=== PATIENT | female | born 1980 | race Caucasian/White ===

== ENCOUNTER 2020-03-21 16:15 | Emergency (ER) | payer MEDICAID, SELFPAY ==
[2020-03-21 19:47] LABS: Absolute Lymphocytes (CBC) 2.6 K/uL (0.7-4.9); Basophils % 0.7 % (0-1.3); Hematocrit 36.3 % (36.0-45.0); Lymphocytes % 38.3 % (15.3-44.8); MPV 7.8 fL (7.6-11.3); RBC Red Blood Cell Count 4.53 M/uL (3.86-4.86)
--- NOTE | 2020-03-21 19:47 | RAD REPORT ---
EXAM DESCRIPTION: [place] Single View03/21/2020 7:35 pm CLINICAL HISTORY: cough COMPARISON: none FINDINGS: The lungs appear clear of acute infiltrate. The heart is normal size IMPRESSION: No acute abnormalities displayed
[2020-03-21 19:48] LABS: Protime INR 1.08
[2020-03-21 20:06] LABS: ALT/SGPT 142 U/L (12-78); AST/SGOT 55 U/L (15-37); Albumin 3.4 g/dL (3.4-5.0); Alkaline Phosphatase 112 U/L (45-117); BUN Blood Urea Nitrogen 14 mg/dL (7-18); Bicarbonate 29 mmol/L (21-32); Bilirubin Direct < 0.1 mg/dL (0-0.2); Bilirubin Total 0.3 mg/dL (0.2-1.0); Glucose Level 117 mg/dL (74-106); Lipase 58 U/L (73-393); Magnesium 2.4 mg/dL (1.8-2.4); NT PRO-BNP 19 pg/mL (<125); Potassium 3.9 mmol/L (3.5-5.1); Protein, Total 7.4 g/dL (6.4-8.2); Sodium Level 140 mmol/L (136-145); Troponin (Emerg Dept Use Only) < 0.02 ng/mL (0.0-0.045)
--- NOTE | 2020-03-21 20:15 | ER ---
Nurse's Notes [facility] Name: Edith Fox Age: 39 yrs Sex: Female : 1980 Arrival Date: 03/21/2020 Time: 16:22 Bed 19 Private MD: Diagnosis: Edema, unspecified Presentation: 03/21 16:28 Chief complaint: Patient states: "I have CHF and I take Lasix which usually helps, but ss since yesterday, I've been swelling. It's my hands, feet and my face." Denies SOB. Coronavirus screen: Client denies travel out of the [place] in the last 14 days. Ebola Screen: Patient denies exposure to infectious person. Patient denies travel to an Ebola-affected area in the 21 days before illness onset. Initial Sepsis Screen: Does the patient meet any 2 criteria? No. Patient's initial sepsis screen is negative. Does the patient have a suspected source of infection? No. Patient's initial sepsis screen is negative. Risk Assessment: Do you want to hurt yourself or someone else? Patient reports no desire to harm self or others. Onset of symptoms was March 20, 2020. 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 - Social history:: Smoking status: Patient denies any tobacco usage or history of. Screenin:41 Abuse screen: Denies threats or abuse. Nutritional screening: No deficits noted. ll1 Tuberculosis screening: No symptoms or risk factors identified. Fall Risk IV access (20 points). Total Neal Fall Scale indicates No Risk (0-24 pts). Assessment: 18:42 General: Appears in no apparent distress. Behavior is calm, cooperative, appropriate ll1 for age. Pain: Denies pain. Cardiovascular: Reports since generalized swelling hands/legs/face. Taking medications as prescribed. 19:40 Reassessment: No changes from previously documented assessment. Patient and/or family ll1 updated on plan of care and expected duration. Pain level reassessed. Patient is alert, oriented x 3, equal unlabored respirations, skin warm/dry/pink. 20:40 Reassessment: No changes from previously documented assessment. Patient and/or family ll1 updated on plan of care and expected duration. Pain level reassessed. Patient is alert, oriented x 3, equal unlabored respirations, skin warm/dry/pink. Vital Signs: 16:28 BP 114 / 86; Pulse 82; Resp 15; Temp 97.2(TE); Pulse Ox 98% on R/A; Weight 81.19 kg; Height 5 ft. 0 in. (152.40 cm); Pain 0/10; 18:44 BP 123 / 83; Pulse 85; Resp 16; Pulse Ox 100% ; ll1 20:39 BP 108 / 82; Pulse 84; Resp 16; Pulse Ox 100% ; Pain 0/10; ll1 16:28 Body Mass Index 34.96 (81.19 kg, 152.40 cm) ED Course: 16:22 Patient arrived in ED. ag5 16:30 Triage completed. 16:31 Arm band placed on right wrist. 18:41 Dillon Bar, RN is Primary Nurse. ll1 18:41 Patient has correct armband on for positive identification. Bed in low position. Call ll1 light in reach. Side rails up X2. Pulse ox on. NIBP on. 18:42 Patient placed in an exam room, on a stretcher. ll1 18:53 Massimo Francis MD is Attending Physician. flo 19:00 Inserted saline lock: 18 gauge in right EJ, using aseptic technique. Blood collected. ll1 19:35 XRAY Chest (1 view) In Process Unspecified. EDMS 20:14 Adin Dangelo MD is Referral Physician. flo 20:39 IV discontinued, intact, bleeding controlled, No redness/swelling at site. Pressure ll1 dressing applied. 20:39 No provider procedures requiring assistance completed. ll1 Administered Medications: No medications were administered Outcome: 20:14 Discharge ordered by . flo 20:39 Discharged to home ambulatory. ll1 20:39 Condition: stable 20:39 Discharge instructions given to patient, Instructed on discharge instructions, follow up and referral plans. Demonstrated understanding of instructions, follow-up care. 20:41 Patient left the ED. ll1 Signatures: Dispatcher [employer] EDMassimo Keenan MD MD flo Smirch, Mira, RN RN Rosina Cervantes ag5 Dillon Bar, RN RN ll1 Corrections: (The following items were deleted from the chart) 20:39 20:38 Inserted saline lock: 18 gauge in right EJ, using aseptic technique. Blood ll1 collected. ll1
--- NOTE | 2020-03-21 20:16 | EDPHYS ---
Physician Documentation [facility] Name: Edith Fox Age: 39 yrs Sex: Female : 1980 Arrival Date: 03/21/2020 Time: 16:22 Bed 19 Private MD: ED Physician Massimo Francis HPI: 03/21 19:20 This 39 yrs old Female presents to ER via Ambulatory with complaints of Hand flo Swelling, Feet Swelling, Facial Swelling. 19:20 hands, feet, face swelling. Onset: The symptoms/episode began/occurred 2 day(s) ago. flo Severity of symptoms: in the emergency department the symptoms are unchanged. The patient has experienced similar episodes in the past, several times. 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 - Social history:: Smoking status: Patient denies any tobacco usage or history of. ROS: 19:21 Constitutional: Negative for fever, chills, and weight loss, Eyes: Negative for injury, flo pain, redness, and discharge, ENT: Negative for injury, pain, and discharge, Neck: Negative for injury, pain, and swelling, Cardiovascular: Negative for chest pain, palpitations, and edema, Respiratory: Negative for shortness of breath, cough, wheezing, and pleuritic chest pain, Abdomen/GI: Negative for abdominal pain, nausea, vomiting, diarrhea, and constipation, Back: Negative for injury and pain, : Negative for injury, bleeding, discharge, and swelling, Skin: Negative for injury, rash, and discoloration, Neuro: Negative for headache, weakness, numbness, tingling, and seizure, Psych: Negative for depression, anxiety, suicide ideation, homicidal ideation, and hallucinations, Allergy/Immunology: Negative for hives, rash, and allergies, Endocrine: Negative for neck swelling, polydipsia, polyuria, polyphagia, and marked weight changes, Hematologic/Lymphatic: Negative for swollen nodes, abnormal bleeding, and unusual bruising. 19:21 MS/extremity: Positive for tenderness, of the right arm, left arm, right leg and left leg. Exam: 19:21 Constitutional: This is a well developed, well nourished patient who is awake, alert, flo and in no acute distress. Head/Face: Normocephalic, atraumatic. Eyes: Pupils equal round and reactive to light, extra-ocular motions intact. Lids and lashes normal. Conjunctiva and sclera are non-icteric and not injected. Cornea within normal limits. Periorbital areas with no swelling, redness, or edema. ENT: Nares patent. No nasal discharge, no septal abnormalities noted. Tympanic membranes are normal and external auditory canals are clear. Oropharynx with no redness, swelling, or masses, exudates, or evidence of obstruction, uvula midline. Mucous membranes moist. Neck: Trachea midline, no thyromegaly or masses palpated, and no cervical lymphadenopathy. Supple, full range of motion without nuchal rigidity, or vertebral point tenderness. No Meningismus. Chest/axilla: Normal chest wall appearance and motion. Nontender with no deformity. No lesions are appreciated. Cardiovascular: Regular rate and rhythm with a normal S1 and S2. No gallops, murmurs, or rubs. Normal PMI, no JVD. No pulse deficits. Respiratory: Lungs have equal breath sounds bilaterally, clear to auscultation and percussion. No rales, rhonchi or wheezes noted. No increased work of breathing, no retractions or nasal flaring. Abdomen/GI: Soft, non-tender, with normal bowel sounds. No distension or tympany. No guarding or rebound. No evidence of tenderness throughout. Back: No spinal tenderness. No costovertebral tenderness. Full range of motion. Skin: Warm, dry with normal turgor. Normal color with no rashes, no lesions, and no evidence of cellulitis. MS/ Extremity: Pulses equal, no cyanosis. Neurovascular intact. Full, normal range of motion. Neuro: Awake and alert, GCS 15, oriented to person, place, time, and situation. Cranial nerves II-XII grossly intact. Motor strength 5/5 in all extremities. Sensory grossly intact. Cerebellar exam normal. Normal gait. Psych: Awake, alert, with orientation to person, place and time. Behavior, mood, and affect are within normal limits. 19:21 Musculoskeletal/extremity: DVT Exam: No signs of deep vein thrombosis. no pain, no swelling, no tenderness, negative Homans' sign noted on exam, no appreciated bluish discoloration, no erythema, no increased warmth. 19:58 ECG was reviewed by the Attending Physician. [facility] Vital Signs: 16:28 BP 114 / 86; Pulse 82; Resp 15; Temp 97.2(TE); Pulse Ox 98% on R/A; Weight 81.19 kg; ss Height 5 ft. 0 in. (152.40 cm); Pain 0/10; 18:44 BP 123 / 83; Pulse 85; Resp 16; Pulse Ox 100% ; ll1 20:39 BP 108 / 82; Pulse 84; Resp 16; Pulse Ox 100% ; Pain 0/10; ll1 16:28 Body Mass Index 34.96 (81.19 kg, 152.40 cm) Procedures: 19:58 Peripheral line: by aseptic technique a peripheral line was placed in the left external [facility] jugular vein. MDM: 18:53 Patient medically screened. [facility] 19:59 Differential diagnosis: contusion. Differential Diagnosis CHF, RENAL ISSUSES. Data [facility] reviewed: vital signs, nurses notes, lab test result(s), EKG, radiologic studies, CT scan, plain films. Data interpreted: equipment monitor phototypesetting: rate is 85 beats/min, rhythm is regular. Test interpretation: by ED physician or midlevel provider: ECG, plain radiologic studies. Counseling: I had a detailed discussion with the patient and/or guardian regarding: the historical points, exam findings, and any diagnostic results supporting the discharge/admit diagnosis, lab results, radiology results, the need for outpatient follow up, for definitive care, a flight test mechanic, a family practitioner. 03/21 19:00 Order name: Basic Metabolic Panel; Complete Time: 20:14 [facility] 03/21 19:00 Order name: CBC with Diff; Complete Time: 20:14 [facility] 03/21 19:00 Order name: LFT's; Complete Time: 20:14 [facility] 03/21 19:00 Order name: Magnesium; Complete Time: 20:14 [facility] 03/21 19:00 Order name: NT PRO-BNP; Complete Time: 20:14 [facility] 03/21 19:00 Order name: PT-INR; Complete Time: 20:14 [facility] 03/21 19:00 Order name: Troponin (emerg Dept Use Only); Complete Time: 20:14 [facility] 03/21 19:00 Order name: XRAY Chest (1 view); Complete Time: : [facility] 03/21 19:00 Order name: EKG; Complete Time: : [facility] 03/21 19:00 Order name: Cardiac monitoring; Complete Time: : [facility] 03/21 19:00 Order name: EKG - Nurse/Tech; Complete Time: : [facility] 03/21 19:00 Order name: IV Saline Lock; Complete Time: : [facility] 03/21 19:00 Order name: Lipase; Complete Time: 20: [facility] 03/21 19:00 Order name: Labs collected and sent; Complete Time: : [facility] 03/21 19:00 Order name: O2 Per Protocol; Complete Time: : [facility] 03/21 19:00 Order name: O2 Sat Monitoring; Complete Time: : [facility] 03/21 19:00 Order name: Urine Dipstick-Ancillary (obtain specimen); Complete Time: : [facility] 03/21 20:25 Order name: Urine Test (obtain specimen); Complete Time: 20:40 [facility] EC:58 Rate is 78 beats/min. Rhythm is regular. QRS [employer] is Normal. SD interval is normal. QRS flo interval is normal. QT interval is normal. No Q waves. T waves are Normal. No ST changes noted. Clinical impression: NSR w/ Non-specific ST/T Changes and No evidence of ischemia. Interpreted by me. Reviewed by me. Administered Medications: No medications were administered Disposition: 03/21/20 20:14 Discharged to Home. Impression: Edema, unspecified. - Condition is Stable. - Discharge Instructions: Edema, Edema, [id number], Peripheral Edema. - Medication Reconciliation Form, Thank You Letter, Antibiotic Education, Prescription Opioid Use form. - Follow up: Private Physician; When: 2 - 3 days; Reason: Recheck today's complaints, Continuance of care, Re-evaluation by your physician. Follow up: Adin Dangelo; When: 2 - 3 days; Reason: Recheck today's complaints, Re-evaluation by your physician. - Problem is new. - Symptoms have improved. Signatures: Dispatcher [employer] EDMS Massimo Francis MD MD cha Smirch, Shelby, RN RN ss Dillon Bar RN RN ll1 Corrections: (The following items were deleted from the chart) 20:41 20:14 03/21/2020 20:14 Discharged to Home. Impression: Edema, unspecified. Condition is ll1 Stable. Discharge Instructions: Edema, Edema, [id number], Peripheral Edema. Forms are Medication Reconciliation Form, Thank You Letter, Antibiotic Education, Prescription Opioid Use. Follow up: Private Physician; When: 2 - 3 days; Reason: Recheck today's complaints, Continuance of care, Re-evaluation by your physician. Follow up: Adin Dangelo; When: 2 - 3 days; Reason: Recheck today's complaints, Re-evaluation by your physician. Problem is new. Symptoms have improved. flo
[2020-03-21 20:48] VITALS: TEMP 97.2
[2020-03-21 20:49] VITALS: O2SAT 100
[2020-03-21 20:50] VITALS: BP 108/82
--- NOTE | 2020-03-22 16:11 | EKG ---
Test Date: 2020-03-21 Test Time: 19:11:16 Technical Sourcing Recruiter: [place] MEASUREMENT RESULTS: Intervals: Rate: 78 TX: 132 QRSD: 78 QT: 382 QTc: 435 [place]: P: 49 TX: 132 QRS: 15 T: 48 INTERPRETIVE STATEMENTS: Normal sinus rhythm Normal ECG No previous ECG available for comparison Electronically Signed On 03-22-20 16:08:45 SYSTEM SUPPORT ANALYST by Adin Dangelo
== END 2020-03-21 20:41 | disposition home or self-care (01) ==
LOC: ER 16:15
PROC: 05HQ33Z Insertion of Infusion Device into Left External Jugular Vein, Percutaneous Approach (ICD-10-PCS; principal; 2020-03-21)
DX: R60.9 Edema, unspecified (principal); I50.9 Heart failure, unspecified; Z88.2 Allergy status to sulfonamides
CPT/HCPCS: 36415; 71045; 80048; 80076; 83690; 83735; 83880; 84484; 85025; 85610; 93005; 99284